=== PATIENT | female | born 1940 | race Caucasian/White ===

== ENCOUNTER 2017-11-30 11:13 | Emergency (ER) | payer OTHER, MEDICARE ==
[~2017-11-30] VITALS: Ht 165.1 cm; Wt 49.9 kg
[2017-11-30 11:18] VITALS: Ht 165.1 cm; Wt 49.9 kg
[2017-11-30] MEDS ORDERED: SYNTHROID0.125 MG PO (11:31)
[2017-11-30] MEDS ORDERED: PRA40 PO (11:32)
[2017-11-30] MEDS ORDERED: NORTRIPTYLINE H10 MG PO (11:33)
[2017-11-30] MEDS ORDERED: TRAZODONE50 M1 PO (11:33)
[2017-11-30] MEDS ORDERED: GOOD SENSE ASPI81 M3 PO (11:34)
[2017-11-30] MEDS ORDERED: PRESERVISION A1 EACH PO (11:34)
[2017-11-30] MEDS ORDERED: PHOSLO667 MG PO (11:35)
[2017-11-30] MEDS ORDERED: PROBIOTIC1 EAC1 PO (11:36)
[2017-11-30] MEDS ORDERED: GLUCOSAMINE & C1 CA3 PO (11:36)
[2017-11-30 12:30] LABS: CALCIUM 9.4 mg/dL (8.5-10.1); CHLORIDE SERUM 101 mmol/L (98-107); CREATININE SERUM 0.9 mg/dL (0.6-1.0); GLUCOSE SERUM 106 mg/dL (74-106); SODIUM SERUM 136 mmol/L (136-145)
[2017-11-30 12:35] LABS: ALBUMIN 3.4 g/dL (3.4-5.0); ALKALINE PHOSPHATASE 64 U/L (46-116); ALT/SGPT 26 U/L (14-59); AST/SGOT 23 U/L (15-37); BILIRUBIN TOTAL 0.6 mg/dL (0.20-1.00); TOTAL PROTEIN, SERUM 6.6 g/dL (6.4-8.2)
[2017-11-30 12:42] LABS: BASOPHIL % 0.2 % (0-2); RED CELL DISTRIBUTION WIDTH 12.9 % (11.5-14.5)
[2017-11-30 12:51] LABS: PLATELET COUNT 118 x10^3mcL (130-400)
[2017-11-30 15:35] VITALS: BP 104/66
== END 2017-11-30 16:27 | disposition home or self-care (01) ==
LOC: ED 11:13
DX: R07.89 Other chest pain (principal); I10 Essential (primary) hypertension; E78.00 Pure hypercholesterolemia, unspecified; E03.9 Hypothyroidism, unspecified; M50.30 Other cervical disc degeneration, unspecified cervical region
CPT/HCPCS: 83880; 85378; J1885; J2270; J2405; Q0092; Q9967